=== PATIENT | male | born 1950 ===

== ENCOUNTER 2019-12-19 05:27 | Day surgery (SDC) | payer OTHER | END 2019-12-19 12:30 | disposition home or self-care (01) | LOC: AMB-ENDOS 05:27 → EDBD 12:30 → AMB-ENDOS 12:30 → ADM 12:30 | PROVIDERS: ATTEND Surgery | DX: D12.0 Benign neoplasm of cecum (principal); Z20.828 Contact with and (suspected) exposure to other viral communicable diseases ==